=== PATIENT | male | born 1965 | race Hispanic/Latino ===

== ENCOUNTER 2017-05-21 03:30 | Emergency (ER) | payer BC ==
[~2017-05-21] VITALS: Ht 167.6 cm; Wt 141.8 kg
[~2017-05-21 03:30] MED LIST: CIPRO500 MG OR; LORTAB 5 OR; LORTAB 7.5 OR; LORTAB5 PO; MIRALAX3350 N1 PO; NAPROSYN500 MG OR; NO MEDS; ROBITUSS11 OR; VENTOLIN HFA IN
[2017-05-21 04:00] LABS: HEMATOCRIT 46.5 % (39.0-50.0); HEMOGLOBIN 15.2 g/dl (14.0-18.0); IMMATURE GRANULOCYTES 0.3 % (0.0-1.0); MEAN CELL VOLUME 83.8 fL CALC (80.0-100.0); MEAN CORPUSCULAR HGB 27.4 pG CALC (26.0-32.0); MEAN CORPUSCULAR HGB CONC 32.7 g/L CALC (32.0-36.0); NEUT# 6.96 thou/uL (1.82-7.42); RED BLOOD COUNT 5.55 mill/uL (4.70-6.10); RED CELL DISTRI WIDTH 13.4 % (11.5-15.5)
[2017-05-21 04:01] LABS: URINE BILIRUBIN - DIPSTICK NEGATIVE (NEGATIVE); URINE BLOOD DIPSTICK LARGE (NEGATIVE); URINE CLARITY CLEAR; URINE COLOR YELLOW; URINE GLUCOSE - DIPSTICK NEGATIVE (NEGATIVE); URINE KETONE NEGATIVE (NEGATIVE); URINE LEUK ESTERASE NEGATIVE (NEGATIVE); URINE NITRITE - DIPSTICK NEGATIVE (Negative); URINE PROTEIN - DIPSTICK 30 mg/dL (NEG-TRACE); URINE SPECIFIC GRAVITY >=1.030; URINE UROBILINOGEN - DIPSTICK 0.2 E.U./dL (0.2)
[2017-05-21 04:09] LABS: URINE BACTERIA FEW hpf; URINE MUCUS MODERATE hpf (NONE-FEW); URINE SQUAMOUS EPITHELIAL CELL FEW EPI/hpf (0-FEW)
[2017-05-21 04:13] LABS: ALKALINE PHOSPHATASE 70 u/l (38-126); CALCIUM 9.1 mg/dL (8.4-10.2); CREATININE 1.1 mg/dL (0.7-1.3); GFR > 60 ML/MIN (>=60 (CALC)); GFR FOR AFR.AMER. > 60 ML/MIN (>=60 (CALC)); GLUCOSE 114 mg/dL (75-110); SGOT/AST 26 u/l (17-59)
[2017-05-21 04:17] LABS: ALBUMIN 4.4 g/dL (3.2-5.0); AMYLASE 80 u/l (30-110); ANION GAP 13 (6-22 (CALC)); BILIRUBIN, TOTAL 0.6 mg/dL (0.0-1.4); BUN 19 mg/dL (9-20); BUN/CREATININE RATIO 17 (12-20 (CALC)); CARBON DIOXIDE 32 mmol/l (22-30); CHLORIDE 99 mmol/l (95-108); LIPASE 158 u/l (23-300); SGPT/ALT 36 u/l (21-72); SODIUM 141 mmol/l (137-146); TOTAL PROTEIN 8.1 g/dL (6.3-8.2)
[2017-05-21 05:05] VITALS: BP 143/96
[2017-05-21] MEDS ORDERED: MOTRIN800 MG PO (06:32)
[2017-05-21] MEDS ORDERED: PERCOCET 5/325M1 TAB PO (06:32)
== END 2017-05-21 07:04 | disposition home or self-care (01) | DRG 694 ==
LOC: ED 03:30
PROVIDERS: Emergency Medicine
DX: N13.2 Hydronephrosis with renal and ureteral calculous obstruction (principal); R11.0 Nausea; Z87.442 Personal history of urinary calculi; R10.9 Unspecified abdominal pain

== ENCOUNTER 2018-08-19 03:29 | Emergency (ER) | payer OTHER ==
[~2018-08-19] VITALS: Ht 167.6 cm; Wt 141.8 kg
[~2018-08-19 03:29] MED LIST changes: +MOTRIN800 MG PO; +PERCOCET 5/325M1 TAB PO
[2018-08-19 04:21] LABS: HEMOGLOBIN 15.1 g/dl (14.0-18.0); IMMATURE GRANULOCYTES 0.3 % (0.0-5.0); MEAN CELL VOLUME 83.8 fL CALC (80.0-100.0); MEAN CORPUSCULAR HGB 27.5 pG CALC (26.0-32.0); MEAN CORPUSCULAR HGB CONC 32.8 g/L CALC (32.0-36.0); NEUT# 8.51 thou/uL (1.82-7.42); RED BLOOD COUNT 5.49 mill/uL (4.70-6.10); RED CELL DISTRI WIDTH 13.3 % (11.5-15.5)
[2018-08-19 04:29] LABS: ALBUMIN 4.1 g/dL (3.2-5.0); ALKALINE PHOSPHATASE 70 u/l (38-126); AMYLASE 73 u/l (30-110); ANION GAP 13 (6-22 (CALC)); BILIRUBIN, TOTAL 0.4 mg/dL (0.0-1.4); BUN 20 mg/dL (9-20); BUN/CREATININE RATIO 20 (12-20 (CALC)); CARBON DIOXIDE 31 mmol/l (22-30); CHLORIDE 101 mmol/l (95-108); GFR > 60 ML/MIN (>=60 (CALC)); GFR FOR AFR.AMER. > 60 ML/MIN (>=60 (CALC)); LIPASE 179 u/l (23-300); POTASSIUM 3.9 mmol/l (3.5-5.1); SGOT/AST 25 u/l (17-59); SODIUM 141 mmol/l (137-146); TOTAL PROTEIN 7.6 g/dL (6.3-8.2)
[2018-08-19 05:22] LABS: URINE BILIRUBIN - DIPSTICK NEGATIVE (NEGATIVE); URINE BLOOD DIPSTICK TRACE-LYSED (NEGATIVE); URINE COLOR YELLOW; URINE GLUCOSE - DIPSTICK NEGATIVE (NEGATIVE); URINE KETONE NEGATIVE (NEGATIVE); URINE LEUK ESTERASE NEGATIVE (NEGATIVE); URINE NITRITE - DIPSTICK NEGATIVE (Negative); URINE PROTEIN - DIPSTICK NEGATIVE (NEG-TRACE); URINE UROBILINOGEN - DIPSTICK 0.2 E.U./dL (0.2)
[2018-08-19 05:23] LABS: URINE CLARITY SL CLOUDY
[2018-08-19] MEDS ORDERED: PHENERGAN25 MG/TAB PO (05:39)
[2018-08-19 06:42] VITALS: BP 154/78
== END 2018-08-19 06:30 | disposition home or self-care (01) ==
LOC: ED 03:29
PROVIDERS: Family Medicine
DX: K52.9 Noninfective gastroenteritis and colitis, unspecified (principal); R10.33 Periumbilical pain; R10.13 Epigastric pain; R11.0 Nausea

== ENCOUNTER 2018-08-24 03:38 | Emergency (ER) | payer OTHER ==
[~2018-08-24] VITALS: Ht 167.6 cm; Wt 136.6 kg
[~2018-08-24 03:38] MED LIST changes: +PHENERGAN25 MG/TAB PO
[2018-08-24 04:17] LABS: HEMATOCRIT 47.2 % (39.0-50.0); HEMOGLOBIN 15.4 g/dl (14.0-18.0); IMMATURE GRANULOCYTES 0.3 % (0.0-5.0); MEAN CELL VOLUME 83.7 fL CALC (80.0-100.0); MEAN CORPUSCULAR HGB 27.3 pG CALC (26.0-32.0); MEAN CORPUSCULAR HGB CONC 32.6 g/L CALC (32.0-36.0); NEUT# 6.16 thou/uL (1.82-7.42); RED BLOOD COUNT 5.64 mill/uL (4.70-6.10); RED CELL DISTRI WIDTH 13.3 % (11.5-15.5)
[2018-08-24 04:31] LABS: ALBUMIN 3.9 g/dL (3.2-5.0); ALKALINE PHOSPHATASE 64 u/l (38-126); AMYLASE 57 u/l (30-110); ANION GAP 11 (6-22 (CALC)); BILIRUBIN, TOTAL 0.4 mg/dL (0.0-1.4); BUN 17 mg/dL (9-20); BUN/CREATININE RATIO 19 (12-20 (CALC)); CARBON DIOXIDE 33 mmol/l (22-30); CHLORIDE 100 mmol/l (95-108); CREATININE 0.9 mg/dL (0.7-1.3); GFR > 60 ML/MIN (>=60 (CALC)); GFR FOR AFR.AMER. > 60 ML/MIN (>=60 (CALC)); LIPASE 194 u/l (23-300); POTASSIUM 3.9 mmol/l (3.5-5.1); SGOT/AST 26 u/l (17-59); SODIUM 140 mmol/l (137-146); TOTAL PROTEIN 7.2 g/dL (6.3-8.2)
[2018-08-24 04:40] LABS: MYOGLOBIN 55 ng/mL (0 - 121)
[2018-08-24] MEDS ORDERED: ULTRAM50 M1 PO (06:21)
[2018-08-24] MEDS ORDERED: ZOFRAN ODT4 MG PO (06:21)
[2018-08-24] MEDS ORDERED: PREVACID30 M3 PO (06:21)
[2018-08-24 06:22] LABS: URINE BILIRUBIN - DIPSTICK NEGATIVE (NEGATIVE); URINE BLOOD DIPSTICK TRACE-INTACT (NEGATIVE); URINE COLOR YELLOW; URINE GLUCOSE - DIPSTICK NEGATIVE (NEGATIVE); URINE KETONE NEGATIVE (NEGATIVE); URINE LEUK ESTERASE NEGATIVE (NEGATIVE); URINE NITRITE - DIPSTICK NEGATIVE (Negative); URINE PROTEIN - DIPSTICK 30 mg/dL (NEG-TRACE); URINE SPECIFIC GRAVITY >=1.030; URINE UROBILINOGEN - DIPSTICK 0.2 E.U./dL (0.2)
[2018-08-24 06:23] VITALS: BP 141/70
[2018-08-24 06:24] LABS: URINE CLARITY CLEAR
[2018-08-24 06:32] LABS: URINE BACTERIA FEW hpf; URINE FINE GRAN CAST FEW lpf; URINE MUCUS MODERATE hpf (NONE-FEW); URINE SQUAMOUS EPITHELIAL CELL FEW EPI/hpf (0-FEW)
== END 2018-08-24 06:39 | disposition home or self-care (01) ==
LOC: ED 03:38
PROVIDERS: Emergency Medicine
DX: K80.20 Calculus of gallbladder without cholecystitis without obstruction (principal); R10.13 Epigastric pain
CPT/HCPCS: S0164

== ENCOUNTER 2019-01-01 20:55 | Emergency (ER) | payer OTHER ==
[~2019-01-01] VITALS: Ht 167.6 cm; Wt 137.0 kg
[~2019-01-01 20:55] MED LIST changes: +PREVACID30 M3 PO; +ULTRAM50 M1 PO; +ZOFRAN ODT4 MG PO
[2019-01-01] MEDS ORDERED: AMOXICILLIN500 MG PO (21:23)
[2019-01-01] MEDS ORDERED: ACETIC ACID2 % OT (21:23)
[2019-01-01 21:32] VITALS: BP 137/81
== END 2019-01-01 21:37 | disposition home or self-care (01) ==
LOC: ED 20:55
DX: H66.92 Otitis media, unspecified, left ear (principal); H60.92 Unspecified otitis externa, left ear; R51 Headache; H92.02 Otalgia, left ear

== ENCOUNTER 2019-08-13 03:34 | Emergency (ER) | payer OTHER ==
[~2019-08-13] VITALS: Ht 167.6 cm; Wt 141.7 kg
[~2019-08-13 03:34] MED LIST changes: +ACETIC ACID2 % OT; +AMOXICILLIN500 MG PO
[2019-08-13] MEDS ORDERED: BLOOD PRESSURE (04:13)
[2019-08-13] MEDS ORDERED: [UNRECOGNIZED DRUG - REMARK] PO (04:13)
[2019-08-13 04:45] LABS: HEMATOCRIT 43.8 % (39.0-50.0); HEMOGLOBIN 14.1 g/dl (14.0-18.0); IMMATURE GRANULOCYTES 0.3 % (0.0-5.0); MEAN CELL VOLUME 83.7 fL CALC (80.0-100.0); MEAN CORPUSCULAR HGB CONC 32.2 g/L CALC (32.0-36.0); NEUT# 8.82 thou/uL (1.82-7.42); RED BLOOD COUNT 5.23 mill/uL (4.70-6.10); RED CELL DISTRI WIDTH 13.8 % (11.5-15.5)
[2019-08-13 04:46] LABS: ALBUMIN 3.9 g/dL (3.2-5.0); ALKALINE PHOSPHATASE 73 u/l (38-126); AMYLASE 56 u/l (30-110); ANION GAP 10 (6-22 (CALC)); BILIRUBIN, TOTAL 0.5 mg/dL (0.0-1.4); BUN 18 mg/dL (9-20); BUN/CREATININE RATIO 19 (12-20 (CALC)); CARBON DIOXIDE 36 mmol/l (22-30); CHLORIDE 97 mmol/l (95-108); CREATININE 0.9 mg/dL (0.7-1.3); GFR > 60 ML/MIN (>=60 (CALC)); GFR FOR AFR.AMER. > 60 ML/MIN (>=60 (CALC)); LIPASE 165 u/l (23-300); POTASSIUM 4.1 mmol/l (3.5-5.1); SGOT/AST 25 u/l (17-59); SODIUM 139 mmol/l (137-146); TOTAL PROTEIN 7.3 g/dL (6.3-8.2)
[2019-08-13 05:50] LABS: URINE BILIRUBIN - DIPSTICK NEGATIVE (NEGATIVE); URINE BLOOD DIPSTICK NEGATIVE (NEGATIVE); URINE COLOR YELLOW; URINE GLUCOSE - DIPSTICK NEGATIVE (NEGATIVE); URINE KETONE NEGATIVE (NEGATIVE); URINE LEUK ESTERASE NEGATIVE (NEGATIVE); URINE NITRITE - DIPSTICK NEGATIVE (Negative); URINE PH 7.5 (4.5-8.0); URINE PROTEIN - DIPSTICK 30 mg/dL (NEG-TRACE); URINE UROBILINOGEN - DIPSTICK 0.2 E.U./dL (0.2)
[2019-08-13 06:16] LABS: URINE BACTERIA RARE hpf; URINE EPITHELIAL CELLS RARE EPI/hpf (0-FEW); URINE RBC 0-2 RBC/hpf (0-5)
[2019-08-13 07:00] VITALS: BP 163/79
== END 2019-08-13 07:00 | disposition home or self-care (01) ==
LOC: ED 03:34
PROVIDERS: Emergency Medicine
DX: R10.84 Generalized abdominal pain (principal)
CPT/HCPCS: Q9967; S0164

== ENCOUNTER 2019-08-22 21:02 | Emergency (ER) | payer OTHER ==
[~2019-08-22] VITALS: Ht 167.6 cm; Wt 139.0 kg
[~2019-08-22 21:02] MED LIST changes: +BLOOD PRESSURE; +[UNRECOGNIZED DRUG - REMARK] PO
[2019-08-22 22:03] LABS: HEMATOCRIT 45.5 % (39.0-50.0); HEMOGLOBIN 14.8 g/dl (14.0-18.0); IMMATURE GRANULOCYTES 0.4 % (0.0-5.0); MEAN CELL VOLUME 83.8 fL CALC (80.0-100.0); MEAN CORPUSCULAR HGB 27.3 pG CALC (26.0-32.0); MEAN CORPUSCULAR HGB CONC 32.5 g/L CALC (32.0-36.0); NEUT# 7.9 thou/uL (1.82-7.42); RED BLOOD COUNT 5.43 mill/uL (4.70-6.10); RED CELL DISTRI WIDTH 13.9 % (11.5-15.5)
[2019-08-22 22:21] LABS: ALBUMIN 4.1 g/dL (3.2-5.0); AMYLASE 51 u/l (30-110); ANION GAP 11 (6-22 (CALC)); BUN 14 mg/dL (9-20); BUN/CREATININE RATIO 15 (12-20 (CALC)); CARBON DIOXIDE 35 mmol/l (22-30); CHLORIDE 98 mmol/l (95-108); CREATININE 0.9 mg/dL (0.7-1.3); GFR > 60 ML/MIN (>=60 (CALC)); GFR FOR AFR.AMER. > 60 ML/MIN (>=60 (CALC)); LIPASE 199 u/l (23-300); POTASSIUM 4.3 mmol/l (3.5-5.1); SODIUM 139 mmol/l (137-146); TOTAL PROTEIN 7.6 g/dL (6.3-8.2)
[2019-08-22 22:22] LABS: ALKALINE PHOSPHATASE 112 u/l (38-126); BILIRUBIN, TOTAL 1.3 mg/dL (0.0-1.4); SGOT/AST 120 u/l (17-59)
[2019-08-22 22:58] LABS: URINE BLOOD DIPSTICK NEGATIVE (NEGATIVE); URINE GLUCOSE - DIPSTICK NEGATIVE (NEGATIVE); URINE KETONE TRACE mg/dL (NEGATIVE); URINE LEUK ESTERASE NEGATIVE (NEGATIVE); URINE NITRITE - DIPSTICK NEGATIVE (Negative); URINE PROTEIN - DIPSTICK 100 mg/dL (NEG-TRACE)
[2019-08-22 23:03] LABS: URINE BILIRUBIN - DIPSTICK SMALL (NEGATIVE); URINE COLOR DK. YELLOW; URINE EPITHELIAL CELLS FEW EPI/hpf (0-FEW); URINE MUCUS FEW hpf (NONE-FEW)
[2019-08-23 00:25] VITALS: BP 115/67
== END 2019-08-23 00:25 | disposition short-term general hospital (02) ==
LOC: ED 21:02
PROVIDERS: Emergency Medicine
DX: K80.70 Calculus of gallbladder and bile duct without cholecystitis without obstruction (principal)
CPT/HCPCS: Q9967

== ENCOUNTER 2021-05-16 10:42 | Emergency (ER) | payer OTHER ==
[~2021-05-16] VITALS: Ht 167.6 cm; Wt 136.0 kg
[2021-05-16] MEDS ORDERED: GENTAK0.32 OD (12:36)
[2021-05-16 13:02] VITALS: BP 155/90
== END 2021-05-16 13:02 | disposition home or self-care (01) ==
LOC: ED 10:42
DX: H10.11 Acute atopic conjunctivitis, right eye (principal); S05.01XA Injury of conjunctiva and corneal abrasion without foreign body, right eye, initial encounter; X58.XXXA Exposure to other specified factors, initial encounter

== ENCOUNTER 2021-07-03 15:58 | Emergency (ER) | payer OTHER ==
[~2021-07-03] VITALS: Ht 167.6 cm; Wt 138.0 kg
[~2021-07-03 15:58] MED LIST changes: +GENTAK0.32 OD
[2021-07-03 18:07] VITALS: BP 151/86
== END 2021-07-03 18:07 | disposition home or self-care (01) ==
LOC: ED 15:58
DX: B34.9 Viral infection, unspecified (principal); Z20.822 Contact with and (suspected) exposure to COVID-19

== ENCOUNTER 2022-01-27 22:06 | Observation (INO) | payer OTHER ==
[~2022-01-27] VITALS: Ht 167.6 cm; Wt 141.0 kg
[2022-01-27 22:18] VITALS: BP 163/96
[2022-01-27 22:31] VITALS: BP 169/89
[2022-01-27] MEDS ORDERED: NORVASC5 M1 PO (22:34)
[2022-01-27] MEDS ORDERED: HYZAAR1 TA2 PO (22:34)
[2022-01-27 22:48] LABS: HEMATOCRIT 44.3 % (39.0-50.0); HEMOGLOBIN 13.9 g/dl (14.0-18.0); IMMATURE GRANULOCYTES 0.4 % (0.0-5.0); MEAN CELL VOLUME 87.9 fL CALC (80.0-100.0); MEAN CORPUSCULAR HGB 27.6 pG CALC (26.0-32.0); MEAN CORPUSCULAR HGB CONC 31.4 g/dL CAL (32.0-36.0); NEUT# 8.05 thou/uL (1.82-7.42); RED BLOOD COUNT 5.04 mill/uL (4.70-6.10); RED CELL DISTRI WIDTH 13.8 % (11.5-15.5)
[2022-01-27 23:01] VITALS: BP 155/77
[2022-01-27 23:06] LABS: ACT PARTIAL THROMBO TIME 26.8 SECONDS (20.0-32.5); ALBUMIN 3.6 g/dL (3.2-5.0); ALKALINE PHOSPHATASE 65 u/l (38-126); ANION GAP 9 (6-22 (CALC)); BUN 14 mg/dL (9-20); BUN/CREATININE RATIO 18 (12-20 (CALC)); CARBON DIOXIDE 36 mmol/l (22-30); CHLORIDE 99 mmol/l (95-108); CREATININE 0.8 mg/dL (0.7-1.3); GFR > 60 ML/MIN (>=60 (CALC)); GFR FOR AFR.AMER. > 60 ML/MIN (>=60 (CALC)); INTERNATIONAL NORMALIZED RATIO 1.1 RATIO (0.7-1.3); LIPASE 112 u/l (23-300); POTASSIUM 3.8 mmol/l (3.5-5.1); SGOT/AST 30 u/l (17-59); SODIUM 140 mmol/l (137-146); TOTAL PROTEIN 7.1 g/dL (6.3-8.2)
[2022-01-27 23:10] LABS: BILIRUBIN, TOTAL 0.6 mg/dL (0.0-1.4)
[2022-01-27 23:31] VITALS: BP 158/83
[2022-01-27 23:42] LABS: URINE BILIRUBIN - DIPSTICK NEGATIVE (NEGATIVE); URINE BLOOD DIPSTICK SMALL (NEGATIVE); URINE COLOR YELLOW; URINE GLUCOSE - DIPSTICK NEGATIVE (NEGATIVE); URINE KETONE NEGATIVE (NEGATIVE); URINE PROTEIN - DIPSTICK 100 mg/dL (NEG-TRACE); URINE SPECIFIC GRAVITY >=1.030; URINE UROBILINOGEN - DIPSTICK 0.2 E.U./dL (0.2)
[2022-01-27 23:59] LABS: URINE NITRITE - DIPSTICK NEGATIVE (Negative)
[2022-01-28] VITALS (10 sets, daily range): BP systolic 128–183; BP diastolic 80–101
[2022-01-28 00:02] LABS: URINE LEUK ESTERASE NEGATIVE (NEGATIVE)
[2022-01-28 00:03] LABS: URINE BACTERIA FEW hpf; URINE EPITHELIAL CELLS FEW EPI/hpf (0-FEW); URINE MUCUS FEW hpf (NONE-FEW)
[2022-01-28 00:04] LABS: URINE CASTS FEW lpf (NONE-RARE)
[2022-01-29 03:17] VITALS: BP 151/71
[2022-01-29 05:49] LABS: HEMATOCRIT 46.8 % (39.0-50.0); HEMOGLOBIN 14.6 g/dl (14.0-18.0); MEAN CELL VOLUME 88.5 fL CALC (80.0-100.0); MEAN CORPUSCULAR HGB 27.6 pG CALC (26.0-32.0); MEAN CORPUSCULAR HGB CONC 31.2 g/dL CAL (32.0-36.0); RED BLOOD COUNT 5.29 mill/uL (4.70-6.10)
[2022-01-29 06:10] LABS: BUN 14 mg/dL (9-20); BUN/CREATININE RATIO 24 (12-20 (CALC)); CARBON DIOXIDE 36 mmol/l (22-30); CHLORIDE 97 mmol/l (95-108); CREATININE 0.6 mg/dL (0.7-1.3); GFR > 60 ML/MIN (>=60 (CALC)); GFR FOR AFR.AMER. > 60 ML/MIN (>=60 (CALC)); SODIUM 139 mmol/l (137-146)
[2022-01-29 06:12] LABS: ANION GAP 10 (6-22 (CALC)); POTASSIUM 4.4 mmol/l (3.5-5.1)
[2022-01-29 07:03] LABS: MAGNESIUM 2.1 mg/dL (1.6-2.3)
[2022-01-29 08:45] VITALS: BP 151/71
[2022-01-29 09:07] VITALS: BP 151/71
[2022-01-29] MEDS ORDERED: PREDNISONE10 MG PO (17:19)
[2022-01-29] MEDS ORDERED: VIBRAMYCIN100 M2 PO (17:20)
[2022-01-29] MEDS ORDERED: PROAIR HFA108 MCG/AC IN (17:21)
== END 2022-01-29 18:30 | disposition home or self-care (01) ==
LOC: ED 22:06 → ED-I 01-28 00:15 → ED 01-28 00:32 → MS2 01-28 00:33
PROVIDERS: ADMIT Internal Medicine; ATTEND Internal Medicine
DX: J20.9 Acute bronchitis, unspecified (principal); J45.909 Unspecified asthma, uncomplicated; J96.01 Acute respiratory failure with hypoxia; J96.02 Acute respiratory failure with hypercapnia; I10 Essential (primary) hypertension; G47.33 Obstructive sleep apnea (adult) (pediatric); E66.01 Morbid (severe) obesity due to excess calories; Z68.43 Body mass index [BMI] 50.0-59.9, adult; Z20.822 Contact with and (suspected) exposure to COVID-19
CPT/HCPCS: G0378; J1650

== ENCOUNTER 2022-05-28 17:10 | Observation (INO) | payer OTHER ==
[2022-05-28] VITALS (9 sets, daily range): BP systolic 104–137; BP diastolic 58–77
[~2022-05-28] VITALS: Ht 167.6 cm; Wt 136.0 kg
[~2022-05-28 17:10] MED LIST changes: +HYZAAR1 TA2 PO; +NORVASC5 M1 PO; +PREDNISONE10 MG PO; +PROAIR HFA108 MCG/AC IN; +VIBRAMYCIN100 M2 PO
--- NOTE | 2022-05-28 17:18 | NUR ---
PATIENT ESCORTED TO ROOM VIA WHEELCHAIR IN NAD. PROVIDER NOTIFIED OF PATIENT STATUS.
[2022-05-28 17:41] LABS: HEMOGLOBIN 15.1 g/dl (14.0-18.0); IMMATURE GRANULOCYTES 0.2 % (0.0-5.0); MEAN CELL VOLUME 88.6 fL CALC (80.0-100.0); MEAN CORPUSCULAR HGB 27.3 pG CALC (26.0-32.0); MEAN CORPUSCULAR HGB CONC 30.8 g/dL CAL (32.0-36.0); NEUT# 8.2 thou/uL (1.82-7.42); RED BLOOD COUNT 5.53 mill/uL (4.70-6.10); RED CELL DISTRI WIDTH 13.3 % (11.5-15.5)
[2022-05-28 17:57] LABS: PROTHROMBIN TIME 10.9 SECONDS (9.0-12.5)
[2022-05-28 18:02] LABS: ALBUMIN 3.9 g/dL (3.2-5.0); ALKALINE PHOSPHATASE 64 u/l (38-126); ANION GAP 10 (6-22 (CALC)); BILIRUBIN, TOTAL 0.4 mg/dL (0.0-1.4); BUN 19 mg/dL (9-20); BUN/CREATININE RATIO 19 (12-20 (CALC)); CARBON DIOXIDE 38 mmol/l (22-30); CHLORIDE 95 mmol/l (95-108); GFR FOR AFR.AMER. > 60 ML/MIN (>=60 (CALC)); GFR OTHER RACES > 60 ML/MIN (>=60 (CALC)); SGOT/AST 25 u/l (17-59); SODIUM 138 mmol/l (137-146); TOTAL PROTEIN 7.5 g/dL (6.3-8.2)
--- NOTE | 2022-05-28 18:33 | NUR ---
Reassessment of patient completed. No distress noted.
[2022-05-28 18:40] LABS: URINE BILIRUBIN - DIPSTICK NEGATIVE (NEGATIVE); URINE BLOOD DIPSTICK TRACE-LYSED (NEGATIVE); URINE COLOR YELLOW; URINE GLUCOSE - DIPSTICK NEGATIVE (NEGATIVE); URINE KETONE NEGATIVE (NEGATIVE); URINE LEUK ESTERASE NEGATIVE (NEGATIVE); URINE PROTEIN - DIPSTICK TRACE mg/dL (NEG-TRACE); URINE SPECIFIC GRAVITY 1.025; URINE UROBILINOGEN - DIPSTICK 0.2 E.U./dL (0.2)
[2022-05-28 18:43] LABS: URINE NITRITE - DIPSTICK NEGATIVE (Negative)
--- NOTE | 2022-05-28 20:00 | NUR ---
Reassessment of patient completed. No distress noted.
--- NOTE | 2022-05-28 20:42 | NUR ---
PT TRAANSFERRED TO FLOOR
--- NOTE | 2022-05-28 20:42 | NUR ---
REPORT CALLED TO FLOOR
[2022-05-29 00:04] VITALS: BP 107/66
--- NOTE | 2022-05-29 00:50 | NUR ---
PT ARRIVED TO FLOOR BY WHEELCHAIR, PT STATES ALL SYMPTOMS HAVE RESOLVED, NIH-0, PT SAID HE JUST HAD A HEADACHE, GAVE TYLENOL AND PT IS NOW SLEEPING, NO DISTRESS NOTED, PT IS NOW SLEEPING, BED IN LOW POSITION, CALL LIGHT WITHIN REACH, ADMISSION COMPLETED ALONG WITH ASSESSMENT
[2022-05-29 04:18] VITALS: BP 116/64
--- NOTE | 2022-05-29 05:03 | NUR ---
PT IN BED ASLEEP, NO DISTRESS NOTED, NO OVERNIGHT EVENTS, BED IN LOW POSITION, CALL LIGHT IN REACH
[2022-05-29 05:47] LABS: CHOLESTEROL HDL RATIO 4.2 (<4.4 (CALC))
[2022-05-29 06:50] VITALS: BP 116/73
--- NOTE | 2022-05-29 07:00 | NUR ---
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
[2022-05-29 07:59] VITALS: BP 116/73
--- NOTE | 2022-05-29 08:00 | NUR ---
PT LAYING DOWN.TELE MONITOR IN PLACE, COTNINOUS MONITORING PER ED. ASSESSMENT PERFORMED. PT A&OX3. STATES NO PAIN, NO FEELING OF NUMBNESS/TINGKLING. DIZZINESS. NIH PERFORMED: 0. FALL/SAFTEY PRECAUTION IN PLACE. CALL LIGHT WITHIN REACH
[2022-05-29] MEDS ORDERED: ADLT ASA LOW81 MG PO (10:48)
--- NOTE | 2022-05-29 12:13 | NUR ---
Discharge instructions given. Patient verbalizes understanding of same. Discharged in stable condition via Wheelchair to Home with staff. All belongings sent with pt.
--- NOTE | 2022-05-29 13:59 | NUR ---
Attempted evaluation. Patient already discharging with no deficits. No need for eval at this point
== END 2022-05-29 12:13 | disposition home or self-care (01) ==
LOC: ED 17:10 → ED-I 17:30 → ED 17:30 → ED-I 17:30 → ED 19:25 → MS2 19:26
PROVIDERS: Internal Medicine; ADMIT Internal Medicine; ATTEND Internal Medicine
DX: G45.9 Transient cerebral ischemic attack, unspecified (principal); I10 Essential (primary) hypertension; E78.5 Hyperlipidemia, unspecified; G47.33 Obstructive sleep apnea (adult) (pediatric); E66.9 Obesity, unspecified; Z20.822 Contact with and (suspected) exposure to COVID-19
CPT/HCPCS: G0378; Q3014; Q9967

== ENCOUNTER 2023-01-22 16:36 | Emergency (ER) | payer OTHER ==
[~2023-01-22] VITALS: Ht 167.6 cm; Wt 118.0 kg
[2023-01-22] VITALS (10 sets, daily range): BP systolic 143–181; BP diastolic 75–113
[~2023-01-22 16:36] MED LIST changes: +ADLT ASA LOW81 MG PO
[2023-01-22 17:14] LABS: BASO% 0.3 % (0-3); EOS% 1.7 % (0-8); HEMATOCRIT 46.7 % (39.0-50.0); HEMOGLOBIN 14.8 g/dl (14.0-18.0); IMMATURE GRANULOCYTES 0.1 % (0.0-5.0); LYMPH% 9.8 % (15-41); MEAN CELL VOLUME 83.8 fL CALC (80.0-100.0); MEAN CORPUSCULAR HGB 26.6 pG CALC (26.0-32.0); MEAN CORPUSCULAR HGB CONC 31.7 g/dL CAL (32.0-36.0); MONO% 5.1 % (2-13); NEUT# 9.04 thou/uL (1.82-7.42); RED BLOOD COUNT 5.57 mill/uL (4.70-6.10); RED CELL DISTRI WIDTH 14.1 % (11.5-15.5)
[2023-01-22 17:44] LABS: ALBUMIN 4.2 g/dL (3.2-5.0); ALKALINE PHOSPHATASE 76 u/l (38-126); ANION GAP 11 (6-22 (CALC)); BUN 12 mg/dL (9-20); BUN/CREATININE RATIO 16 (12-20 (CALC)); CARBON DIOXIDE 34 mmol/l (22-30); CHLORIDE 96 mmol/l (95-108); CREATININE 0.7 mg/dL (0.7-1.3); GFR FOR AFR.AMER. > 60 ML/MIN (>=60 (CALC)); GFR OTHER RACES > 60 ML/MIN (>=60 (CALC)); SGOT/AST 32 u/l (17-59); SODIUM 137 mmol/l (137-146); TOTAL PROTEIN 7.2 g/dL (6.3-8.2)
[2023-01-22 17:57] LABS: BILIRUBIN, TOTAL 1.4 mg/dL (0.2-1.3)
[2023-01-22 17:59] LABS: URINE BILIRUBIN - DIPSTICK NEGATIVE (NEGATIVE); URINE BLOOD DIPSTICK NEGATIVE (NEGATIVE); URINE COLOR YELLOW; URINE GLUCOSE - DIPSTICK NEGATIVE (NEGATIVE); URINE KETONE TRACE mg/dL (NEGATIVE); URINE LEUK ESTERASE NEGATIVE (NEGATIVE); URINE PROTEIN - DIPSTICK 100 mg/dL (NEG-TRACE); URINE SPECIFIC GRAVITY 1.025; URINE UROBILINOGEN - DIPSTICK 0.2 E.U./dL (0.2)
[2023-01-22 18:02] LABS: URINE NITRITE - DIPSTICK NEGATIVE (Negative)
[2023-01-22 18:09] LABS: URINE MUCUS RARE hpf (NONE-FEW); URINE RBC 0-2 RBC/hpf (0-5)
== END 2023-01-22 19:10 | disposition short-term general hospital (02) ==
LOC: ED 16:36
PROVIDERS: Nurse Practitioner
DX: I62.00 Nontraumatic subdural hemorrhage, unspecified (principal); I16.0 Hypertensive urgency; I10 Essential (primary) hypertension

== ENCOUNTER 2024-06-25 14:12 | Emergency (ER) | payer OTHER ==
[~2024-06-25] VITALS: Ht 167.6 cm; Wt 125.0 kg
[2024-06-25] VITALS (16 sets, daily range): BP systolic 101–124; BP diastolic 63–79
[2024-06-25 14:49] LABS: BASO% 0.4 % (0-3); EOS% 2.9 % (0-8); HEMATOCRIT 47.1 % (39.0-50.0); HEMOGLOBIN 15.3 g/dl (14.0-18.0); IMMATURE GRANULOCYTES 0.1 % (0.0-5.0); MEAN CELL VOLUME 88.2 fL CALC (80.0-100.0); MEAN CORPUSCULAR HGB 28.7 pG CALC (26.0-32.0); MEAN CORPUSCULAR HGB CONC 32.5 g/dL CAL (32.0-36.0); MONO% 7.3 % (2-13); NEUT# 7.26 thou/uL (1.82-7.42); NEUT% 74.3 % (42-76); RED BLOOD COUNT 5.34 mill/uL (4.70-6.10); RED CELL DISTRI WIDTH 12.5 % (11.5-15.5)
[2024-06-25 14:58] LABS: ALBUMIN 4.1 g/dL (3.2-5.0); BILIRUBIN, TOTAL 0.7 mg/dL (0.2-1.3); CREATININE 1.1 mg/dL (0.7-1.3); TOTAL PROTEIN 7.3 g/dL (6.3-8.2)
[2024-06-25] MEDS ORDERED: MORPHINE SULFATE 4 MG/ML VIAL IM ONE (15:10)
[2024-06-25] MEDS ORDERED: ONDANSETRON 4 MG/TAB ODT PO ONE (15:10)
[2024-06-25 15:52] LABS: URINE BLOOD DIPSTICK Negative (NEGATIVE); URINE COLOR Yellow; URINE GLUCOSE - DIPSTICK Negative (NEGATIVE); URINE KETONE 15 mg/dL (NEGATIVE); URINE LEUK ESTERASE Negative (NEGATIVE); URINE NITRITE - DIPSTICK Negative (Negative); URINE PH 5.5 (4.5-8.0); URINE PROTEIN - DIPSTICK 30 mg/dL (NEG-TRACE); URINE UROBILINOGEN - DIPSTICK 0.2 E.U./dL (0.2)
[2024-06-25 16:00] LABS: URINE MUCUS FEW hpf (NONE-FEW)
[2024-06-25] MEDS ORDERED: FLEXERIL5 M1 PO (16:24)
[2024-06-25] MEDS ORDERED: HYDROCO/APAP1 TA9 PO (16:24)
[2024-06-25] MEDS ORDERED: HYDROcodone 5 MG/Acetaminophen 325 MG/COMBO PO ONE (16:25)
== END 2024-06-25 17:57 | disposition home or self-care (01) | DRG 552 ==
LOC: ED 14:12
PROVIDERS: Family Medicine
DX: M54.6 Pain in thoracic spine (principal); M54.50 Low back pain, unspecified; I10 Essential (primary) hypertension